=== PATIENT | male | born 1945 | race Caucasian/White ===

== ENCOUNTER 2024-10-04 15:25 | Emergency (ER) | payer MEDICARE, BC ==
[~2024-10-04] VITALS: Ht 182.9 cm; Wt 93.0 kg
[2024-10-04] MEDS ORDERED: METF-494 PO (15:46)
[2024-10-04] MEDS ORDERED: IRBE300T19 PO (15:46)
[2024-10-04] MEDS ORDERED: ROSU20TA2 PO (15:46)
[2024-10-04] MEDS ORDERED: METO-357 PO (15:46)
[2024-10-04] MEDS ORDERED: AMLO-212 PO (15:46)
[2024-10-04] MEDS ORDERED: SEMA7TAB (15:46)
[2024-10-04] MEDS ORDERED: LEVO125T PO (15:46)
[2024-10-04 16:30] LABS: PLATELET COUNT (AUTO) 180 K/uL (152-348); RED BLOOD CELL COUNT(AUTO) 4.66 MIL/uL (4.06-5.63); RED CELL DISTRIBUTION WIDTH 14.9 % (12.1-16.2); WHITE BLOOD COUNT (AUTO) 5.9 K/uL (3.6-10.2)
[2024-10-04 16:39] LABS: CREATININE 1.2 mg/dL (0.6-1.3); SODIUM SERUM 138 mmol/L (136-145); UREA NITROGEN, BLOOD 23 mg/dL (7-18)
[2024-10-04] MEDS ORDERED: TDAP DIPH,PERTUSS,TET VAC/PF 0.5 ML DISP.SYRIN IM ONE (16:57)
[2024-10-04] MEDS: TDAP DIPH,PERTUSS,TET VAC/PF 0.5 ML DISP.SYRIN IM ONE (17:05)
[2024-10-04 17:08] VITALS: BP 114/68; O2SAT 97
== END 2024-10-04 17:10 | disposition home or self-care (01) ==
LOC: ER 15:25
DX: S00.03XA Contusion of scalp, initial encounter (principal); R55 Syncope and collapse; E11.9 Type 2 diabetes mellitus without complications; E78.5 Hyperlipidemia, unspecified; Z79.84 Long term (current) use of oral hypoglycemic drugs; Z79.899 Other long term (current) drug therapy; W18.39XA Other fall on same level, initial encounter; Y93.89 Activity, other specified; Y92.89 Other specified places as the place of occurrence of the external cause; Y99.8 Other external cause status
CPT/HCPCS: 36415; 70450; 84484; 85025; 90715; A4606; A4663